=== PATIENT | female | born 1995 | race Caucasian/White ===

== ENCOUNTER 2016-10-22 10:56 | Emergency (ER) | payer BC ==
[~2016-10-22] VITALS: Ht 170.2 cm; Wt 69.8 kg
[2016-10-22 11:04] VITALS: BP 135/87; PULSE 72; TEMP 36.7; O2SAT 100; Ht 170.2 cm; Wt 69.8 kg
[2016-10-22] MEDS ORDERED: XYLOCAINE 1%/SOD BICARB 20 ML VIAL INFIL ONE (11:20)
[2016-10-22] MEDS ORDERED: BCPILLS PO (11:58)
--- NOTE | 2016-10-22 21:50 | EMERGENCY ROOM VISIT NOTE ---
ED Visit Note First contact with patient: 11:06 Chief complaint: Right index finger laceration HPI: This 21-year-old white female presents for evaluation of a laceration on the radial surface of her right index finger. The patient was opening a metal can of beans and accidentally cut her finger on the lid. Bleeding was controlled with pressure. They deny any numbness, tingling, or loss of motion. No other complaints. Tetanus is believed to be up-to-date. Pain is 2/10. A female friend accompanies her today. Right-hand dominant. Supplemental sheet was reviewed and signed. 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 No tobacco use. REVIEW OF SYSTEM: HEENT: No dizziness, visual problems, hearing loss, or tinnitus. There is no difficulty swallowing and no oral lesions are present. PULMONARY: No cough, shortness of breath, sputum production or hemoptysis. CARDIOVASCULAR: No chest pain, palpitations, shortness of breath or peripheral edema. GASTROINTESTINAL: No diarrhea, constipation, nausea, vomiting, or abdominal pain. GENITOURINARY: No dysuria, frequency, urgency or nocturia. NEUROLOGIC: No weakness, muscle tenderness, epilepsy or history of neurological problems. MUSCULOSKELETAL: No history of joint tenderness/swelling. No history of arthritis or arthralgias. SKIN: No rashes or lesions. PSYCHIATRIC: No history of depression or mental illness. ENDOCRINE: No history of diabetes, thyroid disorders, or abnormal hair growth. Physical Exam: Vitals: Afebrile. Reviewed and filed in patient's chart General: Well-developed, well-nourished, young white female, in no acute distress. No obvious discomfort. She is sitting on the bed. Alert and oriented. Skin: Warm and dry with good turgor. No rashes. No ecchymosis or erythema. The patient is not diaphoretic. No abrasions. The patient has a 1.5 cm curvilinear laceration on the radial surface of her right index finger. It is over the proximal phalanx. No foreign material visible. Musculoskeletal: Intact motor function to the MCP, PIP, and DIP joints of the index finger. Strength is 5/5 for resisted flexion and extension. Neurologic: Gross sensation is intact across the finger by soft touch. Impression: Right index finger 1.5 cm laceration Procedure: Informed oral consent was obtained for repair. Right index finger was prepped with Betadine and draped with a sterile towel. Area was anesthetized using 4 mL 1% plain buffered lidocaine in a digital block. Finger tourniquet was applied for approximately 9 minutes Thorough inspection was performed. No joint involvement. No tendon exposure. No retained foreign material. Wound was irrigated using normal sterile saline under jet spray lavage. Wound was closed using 5-0 nylon. Excellent wound edge approximation was achieved. Hemostasis was achieved. Plan: Patient was educated regarding today's findings. Conservative care measures were discussed. Cleanse the wound daily with soap and water and reapply a small amount of bacitracin. Ice and elevate intermittently as needed for discomfort. Tylenol and ibuprofen every 6 hours as needed for pain. Wound care handout was provided. Sutures out in 12-14 days. She may shower. Avoid soaking or swimming for two weeks. Return to the ER for any acute changes or signs of infection. Current/Historical Medications Scheduled Control Pills ( Control Pills), 1 TAB PO DAILY Allergies Coded Allergies: Acetaminophen (Unverified Adverse Reaction, Unknown, GI UPSET (VOMITTING FOR DAYS), 10/22/16) CI Pigment Blue 63 (Unverified Adverse Reaction, Unknown, GI UPSET , ) Oseltamivir (Unverified Adverse Reaction, Unknown, GI UPSET , 10/22/16) Oxycodone (Unverified Adverse Reaction, Unknown, GI UPSET (VOMITTING FOR DAYS), 10/22/16) Vital Signs Date Time Temp Pulse Resp B/P Pulse Ox O2 Delivery O2 Flow Rate FiO2 10/22/16 11:04 36.7 72 18 135/87 100 Departure Information Impression Primary Impression: Laceration of right index finger w/o foreign body w/o damage t... Dispostion Home / Self-Care Condition GOOD Referrals No Doctor, Assigned (PCP) Forms HOME CARE DOCUMENTATION FORM, Days to leave dressing on : 1 Clean wound with;: soap and water Number of times/day to clean wound: 1 Coat wound with: antibiotic ointment Suture removal in how many days: 12 MOTRIN USE, TYLENOL USE, WOUND CARE INSTRUCTIONS, IMPORTANT VISIT INFORMATION Patient Instructions My [facility] Additional Instructions Cleanse the wound daily with soap and water Avoid swimming or soaking for 2 weeks you may shower and wash your hands Tylenol and Motrin every 6 hours as needed for discomfort Sutures out in 12 days Return to the ED for any acute changes or signs of infection
== END 2016-10-22 12:01 | disposition home or self-care (01) ==
LOC: C.EDB 10:57 → C.EDD 12:01
DX: S61.210A Laceration without foreign body of right index finger without damage to nail, initial encounter (principal); W26.8XXA Contact with other sharp object(s), not elsewhere classified, initial encounter; Z79.3 Long term (current) use of hormonal contraceptives